=== PATIENT | male | born 1945 | race Caucasian/White ===

== ENCOUNTER 2024-01-16 02:00 | Emergency (ER) | payer MEDICARE, BC ==
[~2024-01-16] VITALS: Ht 188 cm; Wt 88.5 kg
[2024-01-16] MEDS ORDERED: PREG150C PO (02:21)
[2024-01-16] MEDS ORDERED: APIX2.5T PO (02:21)
[2024-01-16] MEDS ORDERED: PREGABALIN 100 MG CAPSULE ONE (03:01)
[2024-01-16] MEDS ORDERED: PREGABALIN 50 MG CAPSULE ONE (03:02)
[2024-01-16] MEDS: PREGABALIN 100 MG CAPSULE PO SCH (03:05)
[2024-01-16 06:48] VITALS: BP 125/92; TEMP 97.5; O2SAT 99
== END 2024-01-16 06:49 | disposition home or self-care (01) ==
LOC: ER 02:02
DX: G90.523 Complex regional pain syndrome I of lower limb, bilateral (principal); R53.1 Weakness; M79.2 Neuralgia and neuritis, unspecified; Z98.890 Other specified postprocedural states; Z79.899 Other long term (current) drug therapy; Z60.2 Problems related to living alone
CPT/HCPCS: A4606; A4663